=== PATIENT | female | born 1990 | race American Indian/Alaskan Native ===

== ENCOUNTER 2019-02-23 18:46 | Inpatient (IN) | payer SELFPAY ==
[2019-02-23] MEDS ORDERED: ASPIRIN PO ONE (18:54)
[2019-02-23] MEDS ORDERED: APRESOLINE IV ONE (18:54)
--- NOTE | 2019-02-23 18:54 | Emergency Department Report ---
ED Syncope HPI - General Stated Complaint: AMS Time Seen by Provider: 02/23/19 18:51 Source: patient, EMS Exam Limitations: no limitations - History of Present Illness Initial Comments: Patient is a 28-year-old female that presents emergency room via EMS for syncopal episode times one. Patient states she is having chest pain and shortness of breath and headache. Patient states she is noncompliant with her blood pressure medications. Patient brought pressure severely elevated. Patient's syncopal episode witnessed by EMS. Patient states prior to her syncopal episode she became lightheaded and developed chest pain shortness of breath and then she passed out. Patient states her chest pain shortness of breath continue. Patient states her chest pain shortness of breath and better with rest and worse with exertion. Timing/Prior Episodes: single episode today Precipitating Factors: Positive: lightheadedness Context: standing Loss of Consciousness: brief (seconds) Current Symptoms: chest pain, headache, lightheadedness, weakness. denies: diaphoresis - Related Data Allergies/Adverse Reactions: Allergies No Known Allergies Allergy (Verified 02/23/19 18:54) Home Medications: Ambulatory Orders Lisinopril 20 mg PO DAILY 02/24/19 ED Review of Systems ROS: Stated complaint: AMS Other details as noted in HPI Constitutional: weakness. denies: chills, fever Eyes: denies: eye pain, eye discharge, vision change ENT: denies: ear pain, throat pain Respiratory: shortness of breath. denies: cough, wheezing Cardiovascular: chest pain. denies: palpitations Endocrine: no symptoms reported Gastrointestinal: denies: abdominal pain, nausea, diarrhea Genitourinary: denies: urgency, dysuria, discharge Musculoskeletal: denies: back pain, joint swelling, arthralgia Skin: denies: rash, lesions Neurological: headache, weakness. denies: paresthesias Psychiatric: denies: anxiety, depression Hematological/Lymphatic: denies: easy bleeding, easy bruising ED Past Medical Hx - Past Medical History Previous Medical History?: Yes Hx Hypertension: Yes - Surgical History Past Surgical History?: Yes - Family History Family history: no significant - Social History Smoking Status: Never Smoker Substance Use Type: None - Medications Home Medications: Home Medications Medication Instructions Recorded Confirmed Last Taken Type Lisinopril 20 mg PO DAILY 02/24/19 02/24/19 Unknown History ED Physical Exam - General General appearance: alert, in no apparent distress - Head Head exam: Present: atraumatic, normocephalic - Eye Eye exam: Present: normal appearance, PERRL Pupils: Present: normal accommodation - ENT ENT exam: Present: mucous membranes moist - Neck Neck exam: Present: normal inspection - Respiratory Respiratory exam: Present: normal lung sounds bilaterally. Absent: respiratory distress, wheezes, rales - Cardiovascular Cardiovascular Exam: Present: regular rate, normal rhythm. Absent: systolic murmur, diastolic murmur, rubs, gallop - GI/Abdominal GI/Abdominal exam: Present: soft, normal bowel sounds. Absent: distended, tenderness - Rectal Rectal exam: Present: deferred - Extremities Exam Extremities exam: Present: normal inspection - Back Exam Back exam: Present: normal inspection - Neurological Exam Neurological exam: Present: alert, oriented X3 - Psychiatric Psychiatric exam: Present: normal affect, normal mood - Skin Skin exam: Present: warm, dry, intact, normal color. Absent: rash ED Course Vital Signs 02/23/19 02/23/19 02/23/19 18:54 19:19 19:20 Temperature 98 F Pulse Rate 83 74 Respiratory 16 19 Rate Blood Pressure 208/122 186/106 Blood Pressure [Right] O2 Sat by Pulse 100 Oximetry 02/23/19 02/23/19 02/23/19 20:13 20:15 20:30 Temperature Pulse Rate 105 H 105 H 116 H Respiratory 25 H Rate Blood Pressure 145/98 145/98 Blood Pressure 137/112 [Right] O2 Sat by Pulse 100 Oximetry 02/23/19 02/23/19 02/23/19 20:45 21:00 21:15 Temperature Pulse Rate 97 H 101 H 105 H Respiratory 17 15 15 Rate Blood Pressure 173/106 171/102 149/85 Blood Pressure [Right] O2 Sat by Pulse 100 100 100 Oximetry 02/23/19 02/23/19 02/23/19 21:51 22:00 22:15 Temperature Pulse Rate 105 H 106 H Respiratory 17 24 Rate Blood Pressure 173/106 174/100 174/100 Blood Pressure [Right] O2 Sat by Pulse 100 98 98 Oximetry 02/23/19 02/23/19 02/23/19 22:23 22:30 22:45 Temperature Pulse Rate 104 H 104 H 109 H Respiratory 22 20 21 Rate Blood Pressure 149/85 160/95 154/83 Blood Pressure [Right] O2 Sat by Pulse 98 98 98 Oximetry 02/23/19 02/23/19 02/23/19 23:00 23:15 23:30 Temperature Pulse Rate 105 H 109 H 112 H Respiratory 22 17 23 Rate Blood Pressure 138/74 157/86 152/86 Blood Pressure [Right] O2 Sat by Pulse 98 99 99 Oximetry 02/23/19 02/24/19 02/24/19 23:45 00:00 00:15 Temperature Pulse Rate 104 H 134 H 117 H Respiratory 21 32 H 23 Rate Blood Pressure 141/80 156/81 156/81 Blood Pressure [Right] O2 Sat by Pulse 98 99 100 Oximetry 02/24/19 00:31 Temperature Pulse Rate 108 H Respiratory 24 Rate Blood Pressure 141/80 Blood Pressure [Right] O2 Sat by Pulse 98 Oximetry - Reevaluation(s) Reevaluation #1: Patient is still complaining of severe headache. Patient's blood pressure actually has gone up since being given hydralazine. Patient will be given Dilaudid and placed on a nicardipine drip 02/23/19 19:30 Reevaluation #2: Patient is complaining of a headache. Blood pressure is improved but is still above 170 02/23/19 21:05 Reevaluation #3: Patient headache is improved. Patient currently on nicardipine drip and blood pressure is better. 02/23/19 21:45 Reevaluation #4: Patient will pressure better. I discussed all results and plan of care with patient. Patient agrees with plan of care and admission. Patient will be admitted to the hospitalist service. 02/23/19 22:37 - Consultations Consultation #1: Hospitalist consult for admission. Hospitalist to assume care patient and to admit patient. 02/23/19 22:37 ED Medical Decision Making - Lab Data Result diagrams: 02/23/19 19:01 02/23/19 19:01 - EKG Data -: EKG Interpreted by Me EKG shows normal: sinus rhythm, axis, intervals, QRS complexes, ST-T waves Rate: tachycardia - Radiology Data Radiology results: report reviewed CTA CHEST WITH IV CONTRAST INDICATION / CLINICAL INFORMATION: cp. sob. syncope. hbp. TECHNIQUE: Axial CT images were obtained through the chest after injection of 100 IV contrast. 3 plane MIP and/or 3D reconstructions were produced. All CT scans at this location are performed using CT dose reduction for ALARA by means of automated exposure control. COMPARISON: None available. FINDINGS: PULMONARY ARTERIES: No pulmonary emboli. THORACIC AORTA: No significant abnormality. HEART: No significant abnormality. CORONARY ARTERIES: No significant calcification. PLEURA: No pleural effusion. No pneumothorax. LYMPH NODES: No significant adenopathy. LUNGS: No acute air space or interstitial disease. ADDITIONAL FINDINGS: None. UPPER ABDOMEN: Hepatic steatosis. SKELETAL STRUCTURES: No significant osseous abnormality. IMPRESSION: 1. No CT evidence for pulmonary embolism. 2. No acute findings. 3. Hepatic steatosis. Nonenhanced CT scan of the brain: INDICATION: Syncope. TECHNIQUE: Routine CT head without contrast. Sagittal and coronal reformatted images were obtained. All CT scans at this location are performed using CT dose reduction for ALARA by means of automated exposure control. COMPARISON: None. FINDINGS: BRAIN / INTRACRANIAL CONTENTS: No acute hemorrhage, mass effect, midline shift, hydrocephalus, or acute, large territorial infarct. No chronic infarct or focal atrophy. Normal brain volume and ventricular/sulcal size for age. No significant white matter abnormality. CRANIOCERVICAL JUNCTION: No significant abnormality. ORBITS: No significant abnormality of visualized orbits. SINUSES / MASTOIDS: No significant abnormality of the visualized paranasal sinuses or mastoid air cells. ADDITIONAL FINDINGS: None. IMPRESSION: Normal nonenhanced CT scan of the brain. - Medical Decision Making Patient is a 28-year-old female that presents emergency room with complaints of syncope, chest pain and shortness of breath and headache. Patient's blood pressure extremely elevated upon arrival. Patient was given multiple medicati ons to no avail to lower the blood pressure. Patient was then placed on a nicardipine drip which dropped her blood pressure. Patient given pain medications for headache. After medications given and blood pressure improved the patient's headache resolved. Patient's labs unremarkable. Patient has CTA due to her symptoms and was negative. Patient had a CT of the head which is negative. Patient admitted to the hospital service. - Differential Diagnosis syncope. Chest pain/sob. headache. Elevated blood pressure Critical Care Time: Yes Critical care attestation.: If time is entered above; I have spent that time in minutes in the direct care of this critically ill patient, excluding procedure time. Critical Care Time: 45 minutes ED Disposition Clinical Impression: SOB (shortness of breath), Malignant hypertension Chest pain Qualifiers: Chest pain type: unspecified Qualified Code(s): R07.9 - Chest pain, unspecified Syncope Qualifiers: Syncope type: unspecified Qualified Code(s): R55 - Syncope and collapse Headache Qualifiers: Headache type: unspecified Headache chronicity pattern: acute headache Intractability: not intractable Qualified Code(s): R51 - Headache Disposition: DC-09 OP ADMIT IP TO THIS HOSP Is pt being admited?: Yes Does the pt Need Aspirin: No Condition: Critical Time of Disposition: 22:40
[2019-02-23] MEDS ORDERED: MORPHINE IV ONE (19:31)
[2019-02-23 19:41] LABS: Basophils % (Auto) 0.4 % (0.0-1.8); Eosinophils % (Auto) 0.5 % (0.0-4.3); Hematocrit 34.6 % (30.3-42.9); Hemoglobin 11.3 gm/dl (10.1-14.3); Lymphocytes # (Auto) 2.5 K/mm3 (1.2-5.4); Lymphocytes % (Auto) 28.2 % (13.4-35.0); Mean Corpuscular HGB Conc 33 % (30-34); Mean Corpuscular Volume 79 fl (79-97); Monocytes # (Auto) 0.6 K/mm3 (0.0-0.8); Monocytes % (Auto) 6.2 % (0.0-7.3); Platelet Count 266 K/mm3 (140-440); Red Blood Count 4.41 M/mm3 (3.65-5.03); Red Cell Distribution Width 16.3 % (13.2-15.2)
[2019-02-23 19:45] LABS: Creatine Kinase MB 2.2 ng/mL (0.0-4.0)
[2019-02-23 19:51] LABS: Alanine Aminotransferase 26 units/L (7-56); Albumin 4.5 g/dL (3.9-5); BUN/Creatinine Ratio 11; Blood Urea Nitrogen 9 mg/dL (7-17); Calcium 9.2 mg/dL (8.4-10.2); Hemolysis Index 6
[2019-02-23 20:12] LABS: Mean Corpuscular Hemoglobin 26 pg (28-32)
[2019-02-23] MEDS: CARDENE 50 MG in NACL 0.9% 250ML 230 ML IV SCH ×3 (20:50→22:23)
[2019-02-23] MEDS ORDERED: DILAUDID IV ONE (21:05)
[2019-02-23] MEDS ORDERED: ZOFRAN ONE (21:57)
[2019-02-23] MEDS ORDERED: ZOFRAN IV ONE (21:59)
--- NOTE | 2019-02-23 22:12 | Cat Scan Report ---
Nonenhanced CT scan of the brain: INDICATION: Syncope. TECHNIQUE: Routine CT head without contrast. Sagittal and coronal reformatted images were obtained. A ll CT scans at this location are performed using CT dose reduction for ALARA by means of automated ex posure control. COMPARISON: None. FINDINGS: BRAIN / INTRACRANIAL CONTENTS: No acute hemorrhage, mass effect, midline shift, hydrocephalus, or acu te, large territorial infarct. No chronic infarct or focal atrophy. Normal brain volume and ventricul ar/sulcal size for age. No significant white matter abnormality. CRANIOCERVICAL JUNCTION: No significant abnormality. ORBITS: No significant abnormality of visualized orbits. SINUSES / MASTOIDS: No significant abnormality of the visualized paranasal sinuses or mastoid air katlyn ls. ADDITIONAL FINDINGS: None. IMPRESSION: Normal nonenhanced CT scan of the brain. Signer Name: Suzanne Iqbal MD Signed: 02/23/2019 10:08 PM Workstation Name: [id number]
--- NOTE | 2019-02-23 22:14 | Cat Scan Report ---
CTA CHEST WITH IV CONTRAST INDICATION / CLINICAL INFORMATION: cp. sob. syncope. hbp. TECHNIQUE: Axial CT images were obtained through the chest after injection of 100 IV contrast. 3 plane MIP and/o r 3D reconstructions were produced. All CT scans at this location are performed using CT dose reducti on for ALARA by means of automated exposure control. COMPARISON: None available. FINDINGS: PULMONARY ARTERIES: No pulmonary emboli. THORACIC AORTA: No significant abnormality. HEART: No significant abnormality. CORONARY ARTERIES: No significant calcification. PLEURA: No pleural effusion. No pneumothorax. LYMPH NODES: No significant adenopathy. LUNGS: No acute air space or interstitial disease. ADDITIONAL FINDINGS: None. UPPER ABDOMEN: Hepatic steatosis. SKELETAL STRUCTURES: No significant osseous abnormality. IMPRESSION: 1. No CT evidence for pulmonary embolism. 2. No acute findings. 3. Hepatic steatosis. Signer Name: Magali Aguirre MD Signed: 02/23/2019 10:09 PM Workstation Name: [id number]
--- NOTE | 2019-02-23 22:17 | XRay Report ---
CHEST 1 VIEW INDICATION / CLINICAL INFORMATION: Syncope. COMPARISON: None available. FINDINGS: SUPPORT DEVICES: None. HEART / MEDIASTINUM: No significant abnormality. LUNGS / PLEURA: No significant pulmonary or pleural abnormality. No pneumothorax. ADDITIONAL FINDINGS: No significant additional findings. IMPRESSION: 1. No acute findings. Signer Name: Magali Aguirre MD Signed: 02/23/2019 10:12 PM Workstation Name: [id number]
[2019-02-23] MEDS ORDERED: NITROSTAT SL PRN (23:55)
[2019-02-23] MEDS ORDERED: ZOFRAN IV PRN (23:55)
[2019-02-23] MEDS ORDERED: TYLENOL PO PRN (23:57)
[2019-02-24 01:13] LABS: Creatine Kinase MB 1.9 ng/mL (0.0-4.0)
[2019-02-24] MEDS: CARDENE 50 MG in NACL 0.9% 250ML 230 ML IV SCH ×2 (02:14→02:34)
--- NOTE | 2019-02-24 04:47 | History and Physical Report ---
CHIEF COMPLAINT: Syncopal attack. Other complaint includes chest pain, shortness of breath and palpitation. HISTORY OF PRESENTING ILLNESS: The patient is 28-year-old female who came by EMS because she had a syncopal attack. The patient states she was having chest pain with shortness of breath and headache and said that she has not been taking her blood pressure medication. The patient was noted to have a syncopal episode while having chest pain, which was witnessed by EMS. The patient said before the syncopal attack she felt lightheaded with chest pain and shortness of breath and then passed out. The patient still had chest pain and shortness of breath. She was feeling better with rest and worse with exertion. There was no history of fever or chills and no history of nausea or vomiting. Also, there was no history of diaphoresis. The patient's chest pain was located in the precordial and retrosternal area. PAST MEDICAL HISTORY: Pertinent for hypertension. PAST SURGICAL HISTORY: Not clear. FAMILY HISTORY: Reviewed and noncontributory. SOCIAL HISTORY: The patient does not smoke, does not drink alcohol, and does not use illicit drugs. MEDICATIONS: The patient is on lisinopril 20 mg by mouth daily. ALLERGIES: There are no known drug allergies. REVIEW OF SYSTEMS: CONSTITUTIONAL: There is no fever, no chills, no diaphoresis. HEENT: There is headache, but no sore throat. CARDIOVASCULAR SYSTEM: Chest pain is present but no orthopnea. RESPIRATORY SYSTEM: Shortness of breath is present and no cough. GASTROINTESTINAL SYSTEM: There is no nausea, no vomiting, no abdominal pain, diarrhea or constipation. NEUROLOGICAL SYSTEM: There is no numbness. Dizziness is present, syncopal attack present, altered mental status noted. MUSCULOSKELETAL SYSTEM: There is no joint pain or swelling. DERMATOLOGICAL SYSTEM: There is no skin rash or itching. GENITOURINARY SYSTEM: There is no dysuria, hematuria, or flank pain. Rest of system review is normal. PHYSICAL EXAMINATION: GENERAL: At the time of exam, the patient was found to be alert and oriented x 3, looking weak, but not in acute distress. VITAL SIGNS: At the initial time of presentation show temperature of 98 degrees Fahrenheit, pulse of 83, respirations 16, blood pressure of 208/122 with repeat blood pressure within an hour going down to 186/106, and eventually, the blood pressure came down to 141/80. The patient's respiratory rate was 16. O2 sat was 100% on room air. HEENT: Showed pupils to be equal, round, reactive to light and accommodation. Extraocular motions are intact. NECK: Supple with no JVD or carotid bruit. CARDIOVASCULAR SYSTEM: Showed normal first and second heart sounds, with no gallops or murmurs. RESPIRATORY SYSTEM: Showed good air entry on both sides of the lungs with no abnormal breath sounds. GASTROINTESTINAL SYSTEM: Showed abdomen to be full, soft, nontender with no organomegaly or rigidity. NEUROLOGICAL: Shows no focal deficit. MUSCULOSKELETAL SYSTEM: Showed no joint swelling or tenderness. DERMATOLOGICAL SYSTEM: Showed no skin rash. GENITOURINARY SYSTEM: Showed no costovertebral angle tenderness. PERTINENT LABORATORY DATA AND IMAGING STUDIES: The patient had CT angiogram of the chest done that shows no pulmonary embolism, no acute findings, but there is finding of hepatic steatosis. Also, the patient had CT of the head without contrast done that showed normal non-enhancing CT of the brain. The patient also had chest x-ray done, and chest x-ray shows no acute findings. Lab results, the patient has CBC done with normal white count, normal hemoglobin and normal hematocrit with CBC differential being normal. Coagulation studies: The patient has D-dimer done that was normal. The patient's chemistry shows slight decrease in potassium level of 3.4 with the rest of chemistry being unremarkable. The patient's cardiac enzymes show slight increase in the total CPK of 214 with normal CK-MB, normal CK-MB percentage index and normal troponin level. The patient's test was negative. DIAGNOSES: 1. Syncopal attack. 2. Chest pain. 3. Hypertensive crisis. PLAN OF CARE: 1. The patient will be admitted to telemetry as inpatient. 2. The patient will have serial cardiac enzymes involving troponin, total CK, and CK-MB checked every 6 hours x 2 more levels. 3. The patient will continue nicardipine drip started in the Emergency Room until blood pressure comes down to a level of about 150/90 or less and then the patient can be switched over to IV hydralazine every 4 hours with 10-mg dose. 4. The patient will be on IV morphine 2 mg every 3 hours as needed for pain and IV Zofran 4 mg every 8 hours for nausea and vomiting. 5. The patient will be on nitro paste 1 inch to anterior chest wall q.i.d. and Nitrostat 0.4 mg sublingual every 5 minutes as needed for breakthrough chest pain. 6. The patient will be on heparin 5000 units subcutaneous q.12 hours for DVT prophylaxis and will be on aspirin 325 mg by mouth daily. 7. The patient will be on Tylenol 650 mg by mouth every 4 hours for fever and headache. 8. The patient will have 2-D echo done this morning because of syncopal attack and will also have bilateral carotid Doppler done this morning. 9. The patient will have Lexiscan stress test done this morning because of chest pain. 10. The patient will be on oxygen by nasal cannula and will remain n.p.o. until stress test is done. JOB# [id number] OCN/NTS
[2019-02-24] MEDS: NITRO-BID 2% TP SCH ×4 (05:35→19:58)
[2019-02-24] MEDS ORDERED: LEXISCAN IV ONE (07:12)
[2019-02-24] MEDS ORDERED: TYLENOL ONE (08:12)
--- NOTE | 2019-02-24 10:45 | Vascular Lab Report ---
"DUPLEX DOPPLER ULTRASOUND CAROTID, BILATERAL INDICATION: SYNCOPE. FINDINGS: RIGHT CAROTID: No significant atherosclerotic plaque. Right CCA velocity: 115 cm/sec. Right ICA peak systolic velocity: 121 cm/sec. ICA/CCA PSV Ratio: 1.0. Right Vertebral Artery: Antegrade flow. LEFT CAROTID: No significant atherosclerotic plaque. Left CCA velocity: 118 cm/sec. Left ICA peak systolic velocity: 120 cm/sec. ICA/CCA PSV Ratio: 1.0. Left Vertebral Artery: Antegrade flow. IMPRESSION: 1. Right Internal Carotid Artery: Normal. 2. Left Internal Carotid Artery: Normal. Velocity criteria are extrapolated from diameter data as defined by the Society of Radiologists in Ul trasound Consensus Conference, Radiology 2003; 229;340-346. Degree of Stenosis (%) || ICA PSV (cm/sec) || Plaque estimate (%) || ICA/CCA PSV Ratio Normal <125 None <2.0 <50 <125 <50 <2.0 50-69 125-230 50 2.0-4.0 70 but less than 100 >230 50 >4.0 Near occlusion High, low, or none visible variable Total occlusion None visible; no lumen N/A Signer Name: Beny Haas MD Signed: 02/24/2019 10:41 AM Workstation Name: [id number]"
[2019-02-24] MEDS: ASPIRIN PO SCH ×2 (10:51→15:05)
[2019-02-24] MEDS ORDERED: APRESOLINE ONE (14:02)
[2019-02-24] MEDS: APRESOLINE IV PRN ×2 (14:09→21:34)
[2019-02-24] MEDS ORDERED: IBUPROFEN PO PRN (14:50)
[2019-02-24] MEDS ORDERED: IBUPROFEN PO ONE (15:01)
[2019-02-24] MEDS ORDERED: ASPIRIN ONE (15:02)
[2019-02-24] MEDS ORDERED: NITRO-BID 2% TP ONE (15:03)
[2019-02-24] MEDS: HEPARIN SUB-Q SCH ×2 (15:04→21:37)
--- NOTE | 2019-02-24 17:37 | Progress Note ---
Assessment and Plan Assessment and plan: Patient was admitted with syncopal episode, atypical chest pain and shortness of breath Extensive workup is in progress Complaints of headache and generalized weakness Assessment and plan; Syncope; fall precautions Follow syncope workup, supportive care --Atypical chest pain; rule out acute coronary syndrome Stress test --Possible GERD; Protonix Supportive care --Hypertensive urgency; managed with multiple antihypertensives Closely monitor --DVT prophylaxis; Lovenox Follow workup, closely monitor and adjust management as needed Possible discharge tomorrow if workup is negative and patient is stable History Interval history: Patient seen and examined medical records reviewed Patient admitted with syncope and atypical chest pain Workup is in progress The patient complains of headache and generalized weakness Vital signs noted Hospitalist Physical - Constitutional Vitals: Temp Pulse Resp BP Pulse Ox 98 F 74 18 177/65 100 02/23/19 18:54 02/24/19 17:21 02/24/19 17:21 02/24/19 17:21 02/24/19 17:21 General appearance: Present: no acute distress, well-nourished - EENT Eyes: Present: PERRL, EOM intact - Neck Neck: Present: supple, normal ROM - Respiratory Respiratory effort: normal Respiratory: bilateral: diminished, negative: rales, rhonchi, wheezing - Cardiovascular Rhythm: regular Heart Sounds: Present: S1 & S2 - Extremities Extremities: no ischemia, No edema - Abdominal General gastrointestinal: soft, non-tender, non-distended, normal bowel sounds - Integumentary Integumentary: Present: clear, warm - Psychiatric Psychiatric: appropriate mood/affect, cooperative - Neurologic Neurologic: CNII-XII intact, moves all extremities Results - Labs CBC & Chem 7: 02/23/19 19:01 02/23/19 19: Labs: Laboratory Last Values WBC 8.9 K/mm3 (4.5-11.0) 02/23/19 19: RBC 4.41 M/mm3 (3.65-5.03) 02/23/19 19: Hgb 11.3 gm/dl (10.1-14.3) 02/23/19 19: Hct 34.6 % (30.3-42.9) 02/23/19 19: MCV 79 fl (79-97) 02/23/19 19: MCH 26 pg (28-32) L 02/23/19 19: MCHC 33 % (30-34) 02/23/19 19: RDW 16.3 % (13.2-15.2) H 02/23/19 19: Plt Count 266 K/mm3 (140-440) 02/23/19 19: Lymph % (Auto) 28.2 % (13.4-35.0) 02/23/19 19: [place] % (Auto) 6.2 % (0.0-7.3) 02/23/19: Eos % (Auto) 0.5 % (0.0-4.3) 02/23/19 19: Baso % (Auto) 0.4 % (0.0-1.8) 02/23/19: Lymph # 2.5 K/mm3 (1.2-5.4) 02/23/19: [place] # 0.6 K/mm3 (0.0-0.8) 02/23/19: Eos # 0.0 K/mm3 (0.0-0.4) 02/23/19 19: Baso # 0.0 K/mm3 (0.0-0.1) 02/23/19 19: Seg Neutrophils % 64.7 % (40.0-70.0) 02/23/19: Seg Neutrophils # 5.8 K/mm3 (1.8-7.7) 02/23/19 19: 205.39 ng/mlDDU (0-234) 02/23/19 19: Sodium 139 mmol/L (137-145) 02/23/19: Potassium 3.4 mmol/L (3.6-5.0) L 02/23/19: Chloride 103.1 mmol/L (98-107) 02/23/19 19: Carbon Dioxide 23 mmol/L (22-30) 02/23/19: 16 mmol/L 02/23/19 19: BUN 9 mg/dL (7-17) 02/23/19 19: 0.8 mg/dL (0.7-1.2) 02/23/19 19: Estimated GFR > 60 ml/min 02/23/19 19: 11 % 02/23/19 19:01 Glucose 141 mg/dL (65-100) H 02/23/19 19:01 Calcium 9.2 mg/dL (8.4-10.2) 02/23/19 19:01 0.30 mg/dL (0.1-1.2) 02/23/19 19:01 AST 19 units/L (5-40) 02/23/19 19: ALT 26 units/L (7-56) 02/23/19 19:01 74 units/L (35-129) 02/23/19 19:01 192 units/L (30-135) H 02/24/19 00:13 CK-MB (CK-2) 1.9 ng/mL (0.0-4.0) 02/24/19 00:13 CK-MB (CK-2) Rel Index 0.9 (0-4) 02/24/19 00:13 < 0.010 ng/mL (0.00-0.029) 02/24/19 00:13 8.0 g/dL (6.3-8.2) 02/23/19 19: 4.5 g/dL (3.9-5) 02/23/19 19:01 1.3 % 02/23/19 19: HCG, Qual Negative (Negative) 02/23/19 19: Active Medications - Current Medications Current Medications: Generic Name Dose Route Start Last Admin Trade Name Freq PRN Reason Stop Dose Admin Acetaminophen 650 mg 02/23/19 23:57 02/24/19 08:16 Tylenol PO 650 mg Q4H PRN Administration Headache Aspirin 325 mg 02/24/19 10:00 02/24/19 15:05 Aspirin PO 325 mg QDAY BAYLEE Administration Heparin Sodium (Porcine) 5,000 unit 02/24/19 10:00 02/24/19 15:04 Heparin SUB-Q Not Given Q12HR BAYLEE Hydralazine HCl 10 mg 02/24/19 05:25 02/24/19 14:09 Apresoline IV 10 mg Q4HR PRN Administration Increased Blood Pressure Nicardipine HCl 50 mg/ Sodium 250 mls @ 25 mls/hr 02/23/19 20:00 02/24/19 03:11 Chloride IV 0 mg/hr TITR BAYLEE 0 mls/hr Titration Protocol 5 MG/HR Ibuprofen 600 mg 02/24/19 14:50 Ibuprofen PO Q6H PRN Pain, Mild (1-3) Morphine Sulfate 2 mg 02/23/19 23:55 Morphine IV Q3H PRN Pain, Moderate (4-6) Nitroglycerin 1 inch 02/24/19 06:00 02/24/19 15:03 Nitro-Bid 2% TP 1 inch QIDNTG BAYLEE Administration Protocol Nitroglycerin 0.4 mg 02/23/19 23:55 Nitrostat SL .Q5MIN PRN Chest Pain Ondansetron HCl 4 mg 02/23/19 23:55 Zofran IV Q8H PRN Nausea And Vomiting
[2019-02-24] MEDS: MORPHINE IV PRN (20:19)
[2019-02-25] MEDS ORDERED: CARDIZEM IV ONE (00:42)
--- NOTE | 2019-02-25 01:26 | Treadmill Report ---
THALLIUM STRESS TEST LEFT VENTRICLE: Left ventricular chamber size is within normal limits. The perfusion study demonstrates somewhat heterogeneous uptake of the tracer with no significant defects, mild breast attenuation artifact is noted. Gated analysis is suboptimal. CONCLUSIONS: No demonstrable ischemic defect on thallium perfusion imaging. Recommend clinical correlation and echocardiographic reassessment of left ventricular chamber size and systolic function. JOB# [id number] CA/NTS
[2019-02-25] MEDS ORDERED: ZOFRAN IV PRN ×2 (04:53→11:14)
[2019-02-25] MEDS: MORPHINE IV PRN (05:21)
[2019-02-25] MEDS: NITRO-BID 2% TP SCH ×3 (05:54→14:04)
[2019-02-25] MEDS: APRESOLINE IV PRN (06:06)
[2019-02-25] MEDS ORDERED: APRESOLINE PO ONE (08:30)
--- NOTE | 2019-02-25 08:42 | Progress Note ---
Assessment and Plan Assessment and plan: Patient was admitted with syncopal episode, atypical chest pain and shortness of breath Extensive workup is in progress Complaints of headache and generalized weakness Assessment and plan; --Persistant head ache: CT head neg, Get MRI wo, Neuro consult as needed --Syncope; fall precautions neg syncope workup, supportive care --Atypical chest pain; rule out acute coronary syndrome Stress test negative --Possible GERD; Protonix Supportive care --Hypertensive urgency; managed with multiple antihypertensives moderate control --DVT prophylaxis; Lovenox Follow workup, closely monitor and adjust management as needed Possible discharge tomorrow if workup is negative and patient is stable History Interval history: Patient c/o head ache Hospitalist Physical - Constitutional Vitals: Temp Pulse Resp BP Pulse Ox 98.4 F 92 H 18 176/89 100 02/25/19 07:34 02/25/19 08:19 02/25/19 07:34 02/25/19 08:19 02/25/19 07:34 General appearance: Present: no acute distress, well-nourished Results - Labs CBC & Chem 7: 02/23/19 19:01 02/23/19 19:01 Labs: Laboratory Last Values WBC 8.9 K/mm3 (4.5-11.0) 02/23/19 19: RBC 4.41 M/mm3 (3.65-5.03) 02/23/19 19:01 Hgb 11.3 gm/dl (10.1-14.3) 02/23/19 19:01 Hct 34.6 % (30.3-42.9) 02/23/19 19: MCV 79 fl (79-97) 02/23/19 19: MCH 26 pg (28-32) L 02/23/19 19:01 MCHC 33 % (30-34) 02/23/19 19:01 RDW 16.3 % (13.2-15.2) H 02/23/19 19: Plt Count 266 K/mm3 (140-440) 02/23/19 19:01 Lymph % (Auto) 28.2 % (13.4-35.0) 02/23/19 19: [place] % (Auto) 6.2 % (0.0-7.3) 02/23/19 19: Eos % (Auto) 0.5 % (0.0-4.3) 02/23/19 19:01 Baso % (Auto) 0.4 % (0.0-1.8) 02/23/19 19: Lymph # 2.5 K/mm3 (1.2-5.4) 02/23/19 19: [place] # 0.6 K/mm3 (0.0-0.8) 02/23/19 19: Eos # 0.0 K/mm3 (0.0-0.4) 02/23/19 19: Baso # 0.0 K/mm3 (0.0-0.1) 02/23/19 19: Seg Neutrophils % 64.7 % (40.0-70.0) 02/23/19: Seg Neutrophils # 5.8 K/mm3 (1.8-7.7) 02/23/19 19: 205.39 ng/mlDDU (0-234) 02/23/19 19: Sodium 139 mmol/L (137-145) 02/23/19 19: Potassium 3.4 mmol/L (3.6-5.0) L 02/23/19 19: Chloride 103.1 mmol/L (98-107) 02/23/19 19: Carbon Dioxide 23 mmol/L (22-30) 02/23/19 19: 16 mmol/L 02/23/19 19: BUN 9 mg/dL (7-17) 02/23/19 19: 0.8 mg/dL (0.7-1.2) 02/23/19 19: Estimated GFR > 60 ml/min 02/23/19 19:01 11 % 02/23/19 19: Glucose 141 mg/dL (65-100) H 02/23/19 19: Calcium 9.2 mg/dL (8.4-10.2) 02/23/19 19: 0.30 mg/dL (0.1-1.2) 02/23/19 19: AST 19 units/L (5-40) 02/23/19 19: ALT 26 units/L (7-56) 02/23/19 19:01 74 units/L (35-129) 02/23/19 19:01 192 units/L (30-135) H 02/24/19 00:13 CK-MB (CK-2) 1.9 ng/mL (0.0-4.0) 02/24/19 00:13 CK-MB (CK-2) Rel Index 0.9 (0-4) 02/24/19 00:13 < 0.010 ng/mL (0.00-0.029) 02/24/19 00:13 8.0 g/dL (6.3-8.2) 02/23/19 19:01 4.5 g/dL (3.9-5) 02/23/19 19:01 1.3 % 02/23/19 19:01 HCG, Qual Negative (Negative) 02/23/19 19:01 Active Medications - Current Medications Current Medications: Generic Name Dose Route Start Last Admin Trade Name Freq PRN Reason Stop Dose Admin Acetaminophen 650 mg 02/23/19 23:57 02/24/19 08:16 Tylenol PO 650 mg Q4H PRN Administration Headache Aspirin 325 mg 02/24/19 10:00 02/24/19 15:05 Aspirin PO 325 mg QDAY BAYLEE Administration Heparin Sodium (Porcine) 5,000 unit 02/24/19 10:00 02/24/19 21:37 Heparin SUB-Q Not Given Q12HR [facility] Hydralazine HCl 10 mg 02/24/19 05:25 02/25/19 06:06 Apresoline IV 10 mg Q4HR PRN Administration Increased Blood Pressure Hydralazine HCl 25 mg 02/25/19 14:00 Apresoline PO Q8HR [facility] Nicardipine HCl 50 mg/ Sodium 250 mls @ 25 mls/hr 02/23/19 20:00 02/24/19 03:11 Chloride IV 0 mg/hr TITR BAYLEE 0 mls/hr Titration Protocol 5 MG/HR Ibuprofen 600 mg 02/24/19 14:50 02/25/19 04:48 Ibuprofen PO 600 mg Q6H PRN Administration Pain, Mild (1-3) Morphine Sulfate 2 mg 02/23/19 23:55 02/25/19 05:21 Morphine IV 2 mg Q3H PRN Administration Pain, Moderate (4-6) Nitroglycerin 1 inch 02/24/19 06:00 02/25/19 05:54 Nitro-Bid 2% TP Not Given QIDNTG [facility] Protocol Nitroglycerin 0.4 mg 02/23/19 23:55 Nitrostat SL .Q5MIN PRN Chest Pain Ondansetron HCl 4 mg 02/25/19 04:53 02/25/19 05:22 Zofran IV 4 mg Q6H PRN Administration Nausea And Vomiting
[2019-02-25] MEDS: ASPIRIN PO SCH (09:29)
[2019-02-25] MEDS: HEPARIN SUB-Q SCH (09:33)
[2019-02-25] MEDS ORDERED: D5NS 1,000 ML IV SCH (12:00)
[2019-02-25] MEDS ORDERED: XANAX PO PRN (13:15)
--- NOTE | 2019-02-25 13:40 | Magnetic Resonance Report ---
MRI BRAIN WITHOUT CONTRAST INDICATION / CLINICAL INFORMATION: severe headache. Nausea. TECHNIQUE: Multiplanar, multisequence MR images of the brain were obtained. COMPARISON: Head CT 02/23/2019. FINDINGS: BRAIN / INTRACRANIAL CONTENTS: Ventricles and cortical sulci are normal in size and configuration. Th ere is no mass effect. No evidence of intracranial hemorrhage or extra-axial fluid collection is seen . No areas of abnormal brain parenchymal signal intensity are identified. There is no indication of r emote cortical infarction. Diffusion weighted scans are negative. There is no indication of acute isc hemic injury. The brainstem and cerebellum have an unremarkable appearance. CRANIOCERVICAL JUNCTION: No abnormalities are identified at the craniocervical junction. VASCULAR FLOW-VOIDS: Normal flow-voids are present within the major intracranial vessels. ORBITS: The orbits have an unremarkable appearance. SINUSES / MASTOIDS: Opacification of much of the left frontal sinus is noted. Possibility of left fro ntal sinusitis could be considered. Paranasal sinuses are otherwise clear. Mastoid air cells are free from inflammatory disease. IMPRESSION: 1. No intracranial abnormalities on MRI brain without contrast. 2. Inflammatory disease is identified in the left frontal sinus. Consider possibility of left frontal sinusitis. Signer Name: Keagan Diaz MD Signed: 02/25/2019 1:36 PM Workstation Name: [employer] [facility]
[2019-02-25] MEDS ORDERED: APRESOLINE PO SCH (14:00)
[2019-02-25] MEDS ORDERED: CATAPRES PO ONE (14:54)
[2019-02-25] MEDS ORDERED: AUGMENTIN 875 MG PO ONE (14:55)
--- NOTE | 2019-02-25 15:08 | Discharge Summary ---
Providers - Providers Date of Admission: 02/23/19 23:47 Date of discharge: 02/25/19 Attending physician: MORENO QURESHI [facility] Reason for admission: Syncope chest pain shortness of breath and palpitations off 2-3 days durati Condition: Fair Pertinent studies: -Chest x-ray; no acute abnormality noted CT head without contrast; no acute abnormality MRI brain; no intracranial abnormalities on MRI brain without contrast intimated disease left frontal sinus possible left frontal sinusitis CTA chest; negative for PE, hepatic steatosis Lower extremity venous Doppler; negative for lower extremity DVT Stress test; normal stress test Echocardiogram LVH,EF 50-55% Carotid Doppler; right and left internal carotid artery normal Hospital course: Patient was admitted with syncopal episode, atypical chest pain,shortness of breath and headache Patient was noted to have malignant hypertension, admitted managed with multiple antihypertensives Syncope workup is negative with CT head and carotid Doppler echocardiogram Patient also had stress test which was negative for ischemia CTA chest was negative for PE The patient was managed with multiple antihypertensives, continues to have headache MRI of the brain no acute intracranial abnormality except for frontal sinusitis Patient was managed with Augmentin, blood pressure medications optimized Today the patient is comfortable in no new complaints vital signs stable Blood pressure is still moderate control Physical examination is unremarkable Patient is hemodynamically and clinically stable for discharge --Headache; multifactorial Probably secondary to blood pressure, sinusitis Antihypertensives, Augmentin, advised to follow neurology and ENT Upon discharge --Syncope; no new episodes of syncope Syncope workup negative, fall precautions --Shortness of breath; resolved, chest x-ray, CTA chest Negative for acute abnormality --Atypical chest pain; probably secondary to GERD Noncardiac, stress test normal, echocardiogram LVH normal ejection fraction --Hypertensive urgency; moderate control patient noncompliant with antihypertensives Continue current antihypertensives and PRN medications Possible discharge this evening if stable --Patient reports she has Degenerative spine disease; had extensive imaging studies of her back in the past which shows Degenerative disc disease, supportive care, advised to follow private orthopedic/neurosurgeon up On discharge --DVT prophylaxis; Lovenox Possible discharge after 2 hours if stable Disposition: TO HOME OR SELFCARE Time spent for discharge: 32 min Core Measure Documentation - Palliative Care Palliative Care/ Comfort Measures: Not Applicable - Core Measures Any of the following diagnoses?: none Exam - Constitutional Vitals: Temp Pulse Resp BP Pulse Ox 98.4 F 83 18 182/91 100 02/25/19 07:34 02/25/19 14:03 02/25/19 07:34 02/25/19 14:03 02/25/19 07:34 General appearance: Present: no acute distress, well-nourished - EENT Eyes: Present: PERRL, EOM intact - Neck Neck: Present: supple, normal ROM - Respiratory Respiratory effort: normal Respiratory: bilateral: diminished, negative: rales, rhonchi, wheezing - Cardiovascular Rhythm: regular Heart Sounds: Present: S1 & S2 - Extremities Extremities: no ischemia, pulses intact - Abdominal General gastrointestinal: Present: soft, non-tender, non-distended, normal bowel sounds - Integumentary Integumentary: Present: clear, warm - Musculoskeletal Musculoskeletal: strength equal bilaterally - Psychiatric Psychiatric: appropriate mood/affect, cooperative - Neurologic Neurologic: CNII-XII intact, moves all extremities Plan Activity: advance as tolerated Diet: low salt Additional Instructions: Advised 1 day work excuse on 02/26/2019. Advised to see primary care physician for further recommendations. Patient advised to see private neurologist for further evaluation and management. Advised to see scientific technical writer as needed Follow up with: JUSTINE GAMEZNORTH ROBINSON MD CLAU [Primary Care Provider] - 7 Days GURVINDER RIBEIRO MD [Staff Physician] - 7 Days Prescriptions: hydrALAZINE [Apresoline TAB] 25 mg PO Q8HR #90 tablet Amoxicillin/K Clav Tab [Augmentin 875MG TAB] 1 each PO Q12HR #20 tablet cloNIDine [Catapres] 0.1 mg PO Q12HR #30 tablet Famotidine [Pepcid] 10 mg PO BID #20 tablet oxyCODONE /ACETAMINOPHEN [Percocet 5/325] 1 tab PO BID PRN #6 tablet PRN Reason: Pain , Severe (7-10)
[2019-02-25 15:40] LABS: Amphetamine Screen,Urine PRESUMPTIVE NEGATIVE; Benzodiazepines Screen,Urine PRESUMPTIVE NEGATIVE; Cannabinoid Screen,Urine PRESUMPTIVE NEGATIVE; Cocaine Screen,Urine PRESUMPTIVE NEGATIVE; Methadone Screen,Urine PRESUMPTIVE NEGATIVE; Opiate Screen,Urine PRESUMPTIVE NEGATIVE
[2019-02-25 17:18] VITALS: BP 159/93
[2019-02-25] MEDS ORDERED: AUGMENTIN 875 MG PO SCH (22:00)
[2019-02-25] MEDS ORDERED: CATAPRES PO SCH (22:00)
== END 2019-02-25 17:45 | disposition home or self-care (01) | DRG 312 ==
LOC: ED 18:46 → 4A 23:47
PROVIDERS: ADMIT Internal Medicine; ATTEND Internal Medicine
DX: R55 Syncope and collapse (principal); I16.9 Hypertensive crisis, unspecified; I16.0 Hypertensive urgency; J32.9 Chronic sinusitis, unspecified; I10 Essential (primary) hypertension; K21.9 Gastro-esophageal reflux disease without esophagitis
CPT/HCPCS: 36415; 70450; 70551; 71045; 71275; 78452; 80053; 80307; 82550; 82553; 84484; 84703; 85025; 85379; 93005; 93010; 93017; 93306; 93880; G0378; A9502; J0360; J1170; J1644; J2270; J2405; J2785; J7050; Q9967